=== PATIENT | male | born 1970 | race Two or more races ===

== ENCOUNTER 2021-11-05 16:04 | Emergency (ER) | payer MEDICAID, OTHER ==
[~2021-11-05] VITALS: Ht 165.1 cm; Wt 79.4 kg
[2021-11-05] MEDS ORDERED: ALBU8.5H8 INH ×2 (16:47→17:13)
[2021-11-05] MEDS ORDERED: BENZ-13 PO ×2 (16:47→17:13)
[2021-11-05] MEDS ORDERED: PROM5SYR PO ×2 (16:47→17:13)
[2021-11-05] MEDS ORDERED: PRED50TA PO ×2 (16:47→17:13)
--- NOTE | 2021-11-05 16:52 | NUR ---
Patient discharged to home in stable condition. Written and verbal after care instructions given. Patient verbalizes understanding of instructions. Stressed follow up or return to ER for worsening s/s.
== END 2021-11-05 16:52 | disposition home or self-care (01) ==
LOC: ER 16:10
DX: J06.9 Acute upper respiratory infection, unspecified (principal); I10 Essential (primary) hypertension; E73.9 Lactose intolerance, unspecified
CPT/HCPCS: 71045; A4663

== ENCOUNTER 2024-03-25 04:21 | Emergency (ER) | payer OTHER ==
[~2024-03-25] VITALS: Ht 160 cm; Wt 78.5 kg
[~2024-03-25 04:21] MED LIST: ALBU8.5H8 INH; BENZ-13 PO; PRED50TA PO; PROM5SYR PO
[2024-03-25] MEDS ORDERED: DEXAMETHASONE 5 MG/5 ML LIQUID UDC ONE (05:09)
[2024-03-25] MEDS ORDERED: HYDROCODONE/APAP 5-325MG TABLET ONE (05:10)
[2024-03-25] MEDS: HYDROCODONE/APAP 5-325MG TABLET PO ONE (05:15)
[2024-03-25] MEDS: DEXAMETHASONE 0.5 MG/5 ML LIQ UDC PO ONE (05:15)
[2024-03-25] MEDS ORDERED: [UNRECOGNIZED DRUG - CODE] MM (05:35)
[2024-03-25 06:02] VITALS: BP 143/88; TEMP 97.7; O2SAT 98
== END 2024-03-25 06:04 | disposition home or self-care (01) ==
LOC: ER 04:23
DX: U07.1 COVID-19 (principal); J02.8 Acute pharyngitis due to other specified organisms; I10 Essential (primary) hypertension; Z79.899 Other long term (current) drug therapy; Z79.51 Long term (current) use of inhaled steroids
CPT/HCPCS: 86403; 87070; A4606; A4663; J8540

== ENCOUNTER 2025-05-07 23:43 | Emergency (ER) | payer OTHER ==
[~2025-05-07] VITALS: Ht 165.1 cm; Wt 76.7 kg
[~2025-05-07 23:43] MED LIST changes: +CLIN-118 PO; +MUPI22OI2 TP; +[UNRECOGNIZED DRUG - CODE] MM
[2025-05-07 23:51] VITALS: BP 120/81
[2025-05-08] MEDS: IBUPROFEN 400 MG TABLET PO ONE (00:18)
[2025-05-08] MEDS ORDERED: NAPR-1009 PO (00:57)
[2025-05-08] MEDS ORDERED: CYCL5TAB PO (00:57)
[2025-05-08 01:28] VITALS: BP 120/81; O2SAT 98
== END 2025-05-08 01:30 | disposition home or self-care (01) ==
LOC: ER 23:53
DX: S29.012A Strain of muscle and tendon of back wall of thorax, initial encounter (principal); S63.92XA Sprain of unspecified part of left wrist and hand, initial encounter; Z79.52 Long term (current) use of systemic steroids; Z87.39 Personal history of other diseases of the musculoskeletal system and connective tissue; V43.52XA Car driver injured in collision with other type car in traffic accident, initial encounter; Y93.89 Activity, other specified; Y92.488 Other paved roadways as the place of occurrence of the external cause; Y99.8 Other external cause status
CPT/HCPCS: 72110; A4606; A4663